=== PATIENT | male | born 1950 ===

== ENCOUNTER 2017-01-25 08:17 | Day surgery (SDC) | payer MEDICARE, MEDICAID ==
[2017-01-25] MEDS ORDERED: Lactated Ringer's 500 ML IV ONE (08:56)
[2017-01-25 09:09] VITALS: O2SAT 96
[2017-01-25] MEDS ORDERED: Propofol 10 mg/ml Inj (20 ML) ONE (09:36)
[2017-01-25 10:04] VITALS: TEMP 98
[2017-01-25 10:20] VITALS: BP 140/87; PULSE 65; RESP 14
== END 2017-01-25 10:28 | disposition home or self-care (01) ==
LOC: H.ENDO 08:17
PROVIDERS: ATTEND Internal Medicine Gastroenterology
DX: K30 Functional dyspepsia (principal); M13.80 Other specified arthritis, unspecified site; K44.9 Diaphragmatic hernia without obstruction or gangrene; K21.0 Gastro-esophageal reflux disease with esophagitis; K31.9 Disease of stomach and duodenum, unspecified; K29.50 Unspecified chronic gastritis without bleeding
CPT/HCPCS: 43239; 88305; 88313; J2001; J2704; J7120

== ENCOUNTER 2018-06-18 14:42 | Inpatient (IN) | payer OTHER, MEDICAID ==
[2017-09-14 09:31] VITALS: BMI 29.7
--- NOTE | 2018-06-18 17:26 | CP.PCM.HP ---
History of Present Illness - History of Present Illness History of Present Illness: 67M PMH Hep C with possible liver cirrhosis, HTN, HLD, migraine, History of heroin abuse (on methadone for 37 years), and degenerative arthritis of bilateral knees who was discharged from [facility] and admitted to [facility] status-post Left TKR with Dr. Gregory Amin 06/15. Pt admitted for further PT OT. ROS: per HPI all other systems reviewed and negative. PMH: Hep C, cirrhosis?, HTN, HLD, dilated common bile duct s/p ERCP on November 2017 @ [facility], heroin abuse (Methadone for 37 years), degenerative arthritis PSH: Left TKR (06/15/18) Sphinctorotomy with bile duct stents x2 Social: Smokes 4 cigarettes daily since his 20's, history of heroin abuse on methadone 37 years Family History: Father: Arthritis PMD: Dr. Harmeet Olson MD ([facility]) Allergies: acetaminophen, penicillin Present on Admission - Present on Admission Any Indicators Present on Admission: No Past Patient History - Past Medical History & Family History Past Medical History?: No - Past Social History Smoking Status: Former Smoker - CARDIAC Hx Hypertension: Yes - PULMONARY Hx Respiratory Disorders: Yes Hx Pneumonia: Yes (1 year ago) - NEUROLOGICAL Hx Neurological Disorder: No - HEENT Hx HEENT Problems: Yes Hx Cataracts: Yes (bilat iol) - RENAL Hx Chronic Kidney Disease: No - ENDOCRINE/METABOLIC Hx Endocrine Disorders: No - HEMATOLOGICAL/ONCOLOGICAL Hx Blood Disorders: Yes Hx Hepatitis C: Yes (treated no longer) - INTEGUMENTARY Hx Dermatological Problems: No - MUSCULOSKELETAL/RHEUMATOLOGICAL Hx Musculoskeletal Disorders: Yes Hx Degenerative Joint Disease: Yes Hx Osteoarthritis: Yes - GASTROINTESTINAL Hx Gastrointestinal Disorders: No - GENITOURINARY/GYNECOLOGICAL Hx Genitourinary Disorders: No - PSYCHIATRIC Hx Psychophysiologic Disorder: Yes Hx Substance Use: Yes (40 years ago snorted cocaine and herion) - SURGICAL HISTORY Hx Surgeries: Yes Hx Arthroscopy: Yes (LEFT KNEE) Hx Cataract Extraction: Yes - ANESTHESIA Hx Anesthesia: Yes Hx Anesthesia Reactions: No Hx Malignant Hyperthermia: No Meds Allergies/Adverse Reactions: Allergies Allergy/AdvReac Type Severity Reaction Status Date / Time acetaminophen [From Tylenol] Allergy Intermediate RASH Verified 06/18/18 16:57 Penicillins Allergy Intermediate RASH Verified 06/18/18 16:56 Physical Exam - Constitutional Appears: Non-toxic, No Acute Distress - Head Exam Head Exam: ATRAUMATIC, NORMOCEPHALIC - Eye Exam Eye Exam: EOMI, Normal appearance, PERRL Pupil Exam: NORMAL ACCOMODATION, PERRL - ENT Exam ENT Exam: Mucous Membranes Moist, Normal Exam - Neck Exam Neck exam: Positive for: Full Rom, Normal Inspection - Respiratory Exam Respiratory Exam: Clear to Auscultation Bilateral, NORMAL BREATHING PATTERN - Cardiovascular Exam Cardiovascular Exam: RRR, +S1, +S2 - GI/Abdominal Exam GI & Abdominal Exam: Normal Bowel Sounds, Soft. absent: Tenderness - Extremities Exam Extremities exam: Positive for: normal capillary refill, pedal pulses present - Back Exam Back exam: absent: CVA tenderness (L), CVA tenderness (R) - Neurological Exam Neurological exam: Alert, Reflexes Normal - Psychiatric Exam Psychiatric exam: Normal Affect, Normal Mood - Skin Skin Exam: Dry, Warm Assessment & Plan - Assessment and Plan (Free Text) Plan: 67M PMH Hep C with possible liver cirrhosis, HTN, HLD, migraine, History of heroin abuse (on methadone for 37 years), and degenerative arthritis of bilateral knees who was discharged from [facility] and admitted to [facility] status-post Left TKR with Dr. Gregory Amin 06/15. Pt admitted for further PT OT. DJD L knee S/P L TKR - Incentive spirometry - PT/OT consulted - Pain management: Oxycodone 10mg PO Q6 PRN HTN - Continue home medications Lopressor 25mg PO daily Losartan 25mg PO daily HLD - Discontinued atorvastatin at [facility] due to elevated LFTs on pre-op labs - Start Ezetimibe 10mg daily Migraine - Home meds: Imitrex 25mg PO BID History of Heroin Abuse - home dose Methadone 50mg PO daily Hep C - Monitor LFTs as they were elevated at [facility] PPx: Lovnox 40mg SC Q24H
[2018-06-18] MEDS ORDERED: oxyCODONE 10 mg Immediate Release Tab PO PRN (17:37)
[2018-06-18] MEDS: Enoxaparin 40 mg Syringe SC SCH (18:07)
[2018-06-19] MEDS ORDERED: oxyCODONE 5 mg Immediate Release Tab PO PRN (00:41)
[2018-06-19 07:51] LABS: HEMOGLOBIN 8.7 g/dL (12.0-18.0); MEAN CELL VOLUME 88.1 fl (80.0-94.0); MEAN CORPUSCULAR HEMOGLOBIN 31.3 pg (27.0-31.0); MEAN CORPUSCULAR HGB CONC 35.5 g/dL (33.0-37.0); RBC 2.79 Mil/uL (4.40-5.90); RED CELL DISTRIBUTION WIDTH 12.7 % (11.5-14.5); WHITE BLOOD COUNT 7.1 K/uL (4.8-10.8)
[2018-06-19 07:54] LABS: INR 1.1; PROTHROMBIN TIME 12.5 Seconds (9.8-13.1)
[2018-06-19 07:57] LABS: PARTIAL THROMBOPLASTIN TIME 30.4 Seconds (25.6-37.1)
[2018-06-19 08:09] LABS: ALB/GLOB RATIO 0.9 (1.0-2.1); ALBUMIN 3.1 g/dL (3.5-5.0); ALT/SGPT 43 U/L (21-72); AST/SGOT 30 U/L (17-59); BLOOD UREA NITROGEN 4 mg/dl (9-20); CALCIUM 8.6 mg/dL (8.4-10.2); GFR NON-AFRICAN AMERICAN > 60
[2018-06-19] MEDS: Metoprolol Succinate 25 mg XL Tab PO SCH (09:09)
[2018-06-19] MEDS: oxyCODONE 5 mg Immediate Release Tab PO PRN ×2 (11:05→20:05)
[2018-06-19] MEDS: Enoxaparin 40 mg Syringe SC SCH (17:18)
[2018-06-20] MEDS: Metoprolol Succinate 25 mg XL Tab PO SCH (08:44)
[2018-06-20] MEDS: oxyCODONE 5 mg Immediate Release Tab PO PRN ×2 (13:10→21:06)
--- NOTE | 2018-06-20 14:42 | CP.PCM.PN ---
Subjective - Date & Time of Evaluation Date of Evaluation: 06/20/18 Time of Evaluation: 14:00 - Subjective Subjective: Orthopedic progress note: Dr. Starkey Patient was seen and examined at bedside comfortable. Pain is well controlled. He is tolerating PT well. No new complaints. Denies CP/SOB/N/V/D/fever. Objective - Vital Signs/Intake and Output Vital Signs (last 24 hours): Temp Pulse Resp BP Pulse Ox 98.1 F 78 20 145/69 99 06/20/18 08:45 06/20/18 11:39 06/20/18 08:45 06/20/18 11:39 06/20/18 11:39 - Medications Medications: Current Medications Aspirin (Ecotrin) 81 mg PO DAILY [facility] Last Admin: 06/20/18 08:44 Dose: 81 mg Docusate Sodium (Colace) 100 mg PO BID [facility] Last Admin: 06/20/18 08:44 Dose: 100 mg Enoxaparin Sodium (Lovenox) 40 mg SC Q24H [facility] PRN Reason: Protocol Last Admin: 06/19/18 17:18 Dose: 40 mg Vancomycin HCl 1 gm/ Sodium (Chloride) 250 mls @ 125 mls/hr IVPB Q12@0600,1800 [facility] PRN Reason: Protocol Last Admin: 06/20/18 06:02 Dose: 125 mls/hr Ibuprofen (Motrin Tab) 600 mg PO Q6 PRN PRN Reason: Pain, moderate (4-7) Last Admin: 06/20/18 08:52 Dose: 600 mg Losartan Potassium (Cozaar) 25 mg PO DAILY [facility] Last Admin: 06/20/18 08:45 Dose: 25 mg Methadone HCl (Methadone) 50 mg PO DAILY [facility] Last Admin: 06/20/18 08:45 Dose: 50 mg Metoprolol Succinate (Toprol Xl) 25 mg PO DAILY [facility] Last Admin: 06/20/18 08:44 Dose: 25 mg Oxycodone HCl (Oxycodone Immediate Release Tab) 15 mg PO Q6 PRN PRN Reason: Pain, severe (8-10) Last Admin: 06/20/18 13:10 Dose: 15 mg - Labs Labs: 06/19/18 06:20 06/19/18 06:20 PT 12.5 Seconds (9.8-13.1) 06/19/18 06:20 INR 1.1 06/19/18 06:20 APTT 30.4 Seconds (25.6-37.1) 06/19/18 06:20 - Extremities Exam Additional comments: L knee: Dressing intact with mild serosang drainage Dressings removed revealing wound intact with malgorzata, Multiple decompressed large blisters healing well laterally and medially, mild serosang drainage mild to mod edema sensation intact SP/DP/TN motor intact EHL/FHL/TA/G pedal pulses intact comps soft NT b/l Assessment and Plan (1) Status post total left knee replacement Assessment & Plan: POD #5 s/p L TKA doing well -dressings changed, to be changed by PA -PT/OT WBAT -CPM -DVT ppx -above d/w Dr. Starkey in agreement Status: Acute
[2018-06-20] MEDS: Enoxaparin 40 mg Syringe SC SCH (17:28)
[2018-06-21] MEDS: oxyCODONE 5 mg Immediate Release Tab PO PRN ×2 (03:10→16:47)
[2018-06-21] MEDS: Metoprolol Succinate 25 mg XL Tab PO SCH (09:28)
--- NOTE | 2018-06-21 11:17 | CP.PCM.PN ---
Subjective - Date & Time of Evaluation Date of Evaluation: 06/21/18 Time of Evaluation: 08:00 - Subjective Subjective: Patient seen and examined at bedside comfortable. Pain well controlled at surgical knee, moderate pain anterior davenport. No new complaints. Denies CP/SOB/N/V/D/fever. Objective - Vital Signs/Intake and Output Vital Signs (last 24 hours): Temp Pulse Resp BP Pulse Ox 98.8 F 90 20 135/76 98 06/21/18 10:00 06/21/18 10:00 06/21/18 10:00 06/21/18 10:00 06/21/18 10:00 - Medications Medications: Current Medications Aspirin (Ecotrin) 81 mg PO DAILY [facility] Last Admin: 06/21/18 09:27 Dose: 81 mg Docusate Sodium (Colace) 100 mg PO BID [facility] Last Admin: 06/21/18 09:27 Dose: 100 mg Enoxaparin Sodium (Lovenox) 40 mg SC Q24H [facility]; Protocol Last Admin: 06/20/18 17:28 Dose: 40 mg Vancomycin HCl 1 gm/ Sodium (Chloride) 250 mls @ 125 mls/hr IVPB Q12@0600,1800 [facility]; Protocol Last Admin: 06/21/18 06:00 Dose: 125 mls/hr Ibuprofen (Motrin Tab) 600 mg PO Q6 PRN PRN Reason: Pain, moderate (4-7) Last Admin: 06/21/18 09:27 Dose: 600 mg Losartan Potassium (Cozaar) 25 mg PO DAILY [facility] Last Admin: 06/21/18 09:28 Dose: 25 mg Methadone HCl (Methadone) 50 mg PO DAILY [facility] Last Admin: 06/21/18 09:26 Dose: 50 mg Metoprolol Succinate (Toprol Xl) 25 mg PO DAILY [facility] Last Admin: 06/21/18 09:28 Dose: 25 mg Oxycodone HCl (Oxycodone Immediate Release Tab) 15 mg PO Q6 PRN PRN Reason: Pain, severe (8-10) Last Admin: 06/21/18 03:10 Dose: 15 mg - Labs Labs: 06/19/18 06:20 06/19/18 06:20 PT 12.5 Seconds (9.8-13.1) 06/19/18 06:20 INR 1.1 06/19/18 06:20 APTT 30.4 Seconds (25.6-37.1) 06/19/18 06:20 - Extremities Exam Additional comments: L knee: Dressing intact with minimal serosang drainage Dressings removed revealing wound intact with malgorzata, Multiple decompressed large blisters healing well laterally and medially healing well, mild serosang drainage tenderness anterior tibia, comps soft mild to mod edema sensation intact SP/DP/TN motor intact EHL/FHL/TA/G pedal pulses intact comps soft NT b/l Assessment and Plan (1) Status post total left knee replacement Assessment & Plan: POD #6 s/p L TKA doing well -dressings changed this AM, blisters healing well -anterior davenport tenderness due to postop swelling, compressive chi applied, comps soft -PT/OT WBAT -CPM -DVT ppx -above d/w Dr. Starkey in agreement Status: Acute
[2018-06-21] MEDS: Enoxaparin 40 mg Syringe SC SCH (16:48)
--- NOTE | 2018-06-21 18:44 | CP.PCM.CON ---
History of Present Illness - History of Present Illness History of Present Illness: Patient seen and examined. Denied any complaint Past Patient History - Past Medical History & Family History Past Medical History?: Yes - Past Social History Smoking Status: Light Smoker < 10 Cigarettes Daily - CARDIAC Hx Hypertension: Yes - PULMONARY Hx Respiratory Disorders: Yes Hx Pneumonia: Yes (1 year ago) - NEUROLOGICAL Hx Neurological Disorder: No - HEENT Hx HEENT Problems: Yes Hx Cataracts: Yes (bilat iol) - RENAL Hx Chronic Kidney Disease: No - ENDOCRINE/METABOLIC Hx Endocrine Disorders: No - HEMATOLOGICAL/ONCOLOGICAL Hx AIDS: No Hx Hepatitis C: Yes Hx Human Immunodeficiency Virus (HIV): No - INTEGUMENTARY Hx Dermatological Problems: No - MUSCULOSKELETAL/RHEUMATOLOGICAL Hx Musculoskeletal Disorders: Yes Hx Degenerative Joint Disease: Yes Hx Osteoarthritis: Yes Other/Comment: left tkr on 06/15/18 - GASTROINTESTINAL Hx Gastrointestinal Disorders: No - GENITOURINARY/GYNECOLOGICAL Hx Genitourinary Disorders: No - PSYCHIATRIC Hx Psychophysiologic Disorder: Yes Hx Substance Use: Yes (40 years ago snorted cocaine and herion) - SURGICAL HISTORY Hx Surgeries: Yes Hx Arthroscopy: Yes (LEFT KNEE) Hx Cataract Extraction: Yes - ANESTHESIA Hx Anesthesia: Yes Hx Anesthesia Reactions: No Hx Malignant Hyperthermia: No Meds Allergies/Adverse Reactions: Allergies Allergy/AdvReac Type Severity Reaction Status Date / Time acetaminophen [From Tylenol] Allergy Intermediate RASH Verified 06/18/18 16:57 Penicillins Allergy Intermediate RASH Verified 06/18/18 16:56 - Medications Medications: Current Medications Aspirin (Ecotrin) 81 mg PO DAILY [facility] Last Admin: 06/21/18 09:27 Dose: 81 mg Docusate Sodium (Colace) 100 mg PO BID [facility] Last Admin: 06/21/18 16:49 Dose: 100 mg Enoxaparin Sodium (Lovenox) 40 mg SC Q24H [facility]; Protocol Last Admin: 06/21/18 16:48 Dose: 40 mg Vancomycin HCl 1 gm/ Sodium (Chloride) 250 mls @ 125 mls/hr IVPB Q12@0600,1800 [facility]; Protocol Last Admin: 06/21/18 17:10 Dose: 125 mls/hr Ibuprofen (Motrin Tab) 600 mg PO Q6 PRN PRN Reason: Pain, moderate (4-7) Last Admin: 06/21/18 09:27 Dose: 600 mg Losartan Potassium (Cozaar) 25 mg PO DAILY [facility] Last Admin: 06/21/18 09:28 Dose: 25 mg Methadone HCl (Methadone) 50 mg PO DAILY [facility] Last Admin: 06/21/18 09:26 Dose: 50 mg Metoprolol Succinate (Toprol Xl) 25 mg PO DAILY [facility] Last Admin: 06/21/18 09:28 Dose: 25 mg Oxycodone HCl (Oxycodone Immediate Release Tab) 15 mg PO Q6 PRN PRN Reason: Pain, severe (8-10) Last Admin: 06/21/18 16:47 Dose: 15 mg Results - Vital Signs Recent Vital Signs: Last Vital Signs Temp 98.4 F 06/21/18 17:00 Pulse 84 06/21/18 17:00 Resp 20 06/21/18 17:00 BP 134/80 06/21/18 17:00 Pulse Ox 97 06/21/18 17:00 - Labs Result Diagrams: 06/19/18 06:20 06/19/18 06:20
--- NOTE | 2018-06-21 18:48 | CP.PCM.PN ---
Subjective - Date & Time of Evaluation Date of Evaluation: 06/21/18 Time of Evaluation: 18:00 - Subjective Subjective: Patient seen and examined. Requested to skip CPM today Objective - Vital Signs/Intake and Output Vital Signs (last 24 hours): Temp Pulse Resp BP Pulse Ox 98.4 F 84 20 134/80 97 06/21/18 17:00 06/21/18 17:00 06/21/18 17:00 06/21/18 17:00 06/21/18 17:00 - Medications Medications: Current Medications Aspirin (Ecotrin) 81 mg PO DAILY [facility] Last Admin: 06/21/18 09:27 Dose: 81 mg Docusate Sodium (Colace) 100 mg PO BID [facility] Last Admin: 06/21/18 16:49 Dose: 100 mg Enoxaparin Sodium (Lovenox) 40 mg SC Q24H [facility]; Protocol Last Admin: 06/21/18 16:48 Dose: 40 mg Vancomycin HCl 1 gm/ Sodium (Chloride) 250 mls @ 125 mls/hr IVPB Q12@0600,1800 [facility]; Protocol Last Admin: 06/21/18 17:10 Dose: 125 mls/hr Ibuprofen (Motrin Tab) 600 mg PO Q6 PRN PRN Reason: Pain, moderate (4-7) Last Admin: 06/21/18 09:27 Dose: 600 mg Losartan Potassium (Cozaar) 25 mg PO DAILY [facility] Last Admin: 06/21/18 09:28 Dose: 25 mg Methadone HCl (Methadone) 50 mg PO DAILY [facility] Last Admin: 06/21/18 09:26 Dose: 50 mg Metoprolol Succinate (Toprol Xl) 25 mg PO DAILY [facility] Last Admin: 06/21/18 09:28 Dose: 25 mg Oxycodone HCl (Oxycodone Immediate Release Tab) 15 mg PO Q6 PRN PRN Reason: Pain, severe (8-10) Last Admin: 06/21/18 16:47 Dose: 15 mg - Labs Labs: 06/19/18 06:20 06/19/18 06:20 PT 12.5 Seconds (9.8-13.1) 06/19/18 06:20 INR 1.1 06/19/18 06:20 APTT 30.4 Seconds (25.6-37.1) 06/19/18 06:20 - Constitutional Appears: No Acute Distress - Head Exam Head Exam: ATRAUMATIC - Eye Exam Eye Exam: absent: Scleral icterus - ENT Exam ENT Exam: Mucous Membranes Moist - Neck Exam Neck Exam: absent: Meningismus - Respiratory Exam Respiratory Exam: absent: Rales, Rhonchi, Wheezes, Respiratory Distress - Cardiovascular Exam Cardiovascular Exam: REGULAR RHYTHM, +S1, +S2 - GI/Abdominal Exam GI & Abdominal Exam: Soft. absent: Tenderness - Rectal Exam Rectal Exam: Deferred - Neurological Exam Neurological Exam: Alert, Oriented x3 - Psychiatric Exam Psychiatric exam: Normal Affect - Skin Skin Exam: Dry, Intact Assessment and Plan - Assessment and Plan (Free Text) Assessment: 67 yo male with history of Hep C, HTN, HLD, Heroin abuse (on methadone for 37 years) and degenerative arthritis of bilateral knees had left TKR on 06/15/18. He was then transferred to TCU for further PT/OT 1. S/P Left TKR continue PT/OT Oxycodone 10mg PO Q6 PRN 2. HTN BP stable Lopressor 25mg PO daily and Losartan 25mg PO daily 3. HLD on Ezetimibe 10mg daily 4. Migraine Imitrex 25mg PO BID 5. History of Heroin Abuse on Methadone 50mg PO daily 6. DVT prophylaxis Lovenox 40mg SC daily
[2018-06-22] MEDS: oxyCODONE 5 mg Immediate Release Tab PO PRN ×3 (04:34→18:03)
[2018-06-22] MEDS: Metoprolol Succinate 25 mg XL Tab PO SCH (08:31)
--- NOTE | 2018-06-22 09:19 | CP.PCM.PN ---
Subjective - Date & Time of Evaluation Date of Evaluation: 06/22/18 Time of Evaluation: 08:30 - Subjective Subjective: Patient seen and examined OOB to wheelchair comfortable. Pain much improved today. Notes he has been more diligent with elevation. Refused >1 hr of CPM yesterday. C/o issues sleeping through night. No new complaints. Objective - Vital Signs/Intake and Output Vital Signs (last 24 hours): Temp Pulse Resp BP Pulse Ox 98.1 F 92 H 20 130/72 98 06/22/18 00:07 06/22/18 08:31 06/21/18 23:00 06/22/18 08:31 06/21/18 23:00 - Medications Medications: Current Medications Aspirin (Ecotrin) 81 mg PO DAILY [facility] Last Admin: 06/22/18 08:30 Dose: 81 mg Docusate Sodium (Colace) 100 mg PO BID [facility] Last Admin: 06/22/18 08:29 Dose: 100 mg Enoxaparin Sodium (Lovenox) 40 mg SC Q24H [facility]; Protocol Last Admin: 06/21/18 16:48 Dose: 40 mg Vancomycin HCl 1 gm/ Sodium (Chloride) 250 mls @ 125 mls/hr IVPB Q12@0600,1800 [facility]; Protocol Last Admin: 06/22/18 05:13 Dose: 125 mls/hr Ibuprofen (Motrin Tab) 600 mg PO Q6 PRN PRN Reason: Pain, moderate (4-7) Last Admin: 06/22/18 09:06 Dose: 600 mg Ibuprofen (Motrin Tab) 600 mg PO Q6 PRN PRN Reason: Fever >100.4 F Last Admin: 06/21/18 23:07 Dose: 600 mg Losartan Potassium (Cozaar) 25 mg PO DAILY [facility] Last Admin: 06/22/18 08:29 Dose: 25 mg Methadone HCl (Methadone) 50 mg PO DAILY [facility] Last Admin: 06/22/18 08:30 Dose: 50 mg Metoprolol Succinate (Toprol Xl) 25 mg PO DAILY [facility] Last Admin: 06/22/18 08:31 Dose: 25 mg Oxycodone HCl (Oxycodone Immediate Release Tab) 15 mg PO Q6 PRN PRN Reason: Pain, severe (8-10) Last Admin: 06/22/18 04:34 Dose: 15 mg - Labs Labs: 06/19/18 06:20 06/19/18 06:20 PT 12.5 Seconds (9.8-13.1) 06/19/18 06:20 INR 1.1 06/19/18 06:20 APTT 30.4 Seconds (25.6-37.1) 06/19/18 06:20 - Extremities Exam Additional comments: L knee: Dressing intact with minimal serosang drainage Dressings removed revealing wound intact with malgorzata, Multiple decompressed large blisters healing well laterally and medially healing well, mild serosang drainage improved tenderness anterior tibia, comps soft mild edema sensation intact SP/DP/TN motor intact EHL/FHL/TA/G pedal pulses intact comps soft NT b/l Assessment and Plan (1) Status post total left knee replacement Assessment & Plan: POD #7 s/p L TKA doing well -dressings changed this AM, blisters healing well -compressive chi applied -PT/OT WBAT -Had discussion with patient the importance of CPM, patient understands -anirudh prn for insomnia -DVT ppx -above d/w Dr. Starkey in agreement Status: Acute
[2018-06-22] MEDS: Enoxaparin 40 mg Syringe SC SCH (17:57)
--- NOTE | 2018-06-22 20:00 | CP.PCM.CON ---
History of Present Illness - History of Present Illness History of Present Illness: Dr Lewis PMR consultation on Jt Christine, born 1950 with DJD and s/p left TKR. WBAT. Some blisters being treated and improving. Pain is controlled. He has history of substance abuse and is still on Methadone which should cer tainly be considered to be tapered off after all these years. Having complaints of sleeping issues. Given history I do not want to prescribe a Benzo and will write for zanaflex. Review of Systems - Constitutional Constitutional: absent: Anorexia, Chills - EENT Eyes: absent: Change in Vision Ears: absent: Ear Discharge Nose/Mouth/Throat: absent: Nasal Congestion - Cardiovascular Cardiovascular: absent: Chest Pain - Respiratory Respiratory: absent: Dyspnea, Hemoptysis - Gastrointestinal Gastrointestinal: absent: Constipation - Musculoskeletal Musculoskeletal: absent: Back Pain - Integumentary Integumentary: absent: Bleeding Lesions - Neurological Neurological: absent: Abnormal Movements - Psychiatric Psychiatric: absent: Difficulty Concentrating Past Patient History - Past Medical History & Family History Past Medical History?: Yes - Past Social History Smoking Status: Light Smoker < 10 Cigarettes Daily Alcohol: None Drugs: Denies Home Situation {Lives}: With Family (8 steps) - CARDIAC Hx Hypertension: Yes - PULMONARY Hx Respiratory Disorders: Yes Hx Pneumonia: Yes (1 year ago) - NEUROLOGICAL Hx Neurological Disorder: No - HEENT Hx HEENT Problems: Yes Hx Cataracts: Yes (bilat iol) - RENAL Hx Chronic Kidney Disease: No - ENDOCRINE/METABOLIC Hx Endocrine Disorders: No - HEMATOLOGICAL/ONCOLOGICAL Hx AIDS: No Hx Hepatitis C: Yes Hx Human Immunodeficiency Virus (HIV): No - INTEGUMENTARY Hx Dermatological Problems: No - MUSCULOSKELETAL/RHEUMATOLOGICAL Hx Musculoskeletal Disorders: Yes Hx Degenerative Joint Disease: Yes Hx Osteoarthritis: Yes Other/Comment: left tkr on 06/15/18 - GASTROINTESTINAL Hx Gastrointestinal Disorders: No - GENITOURINARY/GYNECOLOGICAL Hx Genitourinary Disorders: No - PSYCHIATRIC Hx Psychophysiologic Disorder: Yes Hx Substance Use: Yes (40 years ago snorted cocaine and herion) - SURGICAL HISTORY Hx Surgeries: Yes Hx Arthroscopy: Yes (LEFT KNEE) Hx Cataract Extraction: Yes - ANESTHESIA Hx Anesthesia: Yes Hx Anesthesia Reactions: No Hx Malignant Hyperthermia: No Meds Allergies/Adverse Reactions: Allergies Allergy/AdvReac Type Severity Reaction Status Date / Time acetaminophen [From Tylenol] Allergy Intermediate RASH Verified 06/18/18 16:57 Penicillins Allergy Intermediate RASH Verified 06/18/18 16:56 - Medications Medications: Current Medications Aspirin (Ecotrin) 81 mg PO DAILY [facility] Last Admin: 06/22/18 08:30 Dose: 81 mg Docusate Sodium (Colace) 100 mg PO BID [facility] Last Admin: 06/22/18 17:56 Dose: 100 mg Enoxaparin Sodium (Lovenox) 40 mg SC Q24H [facility]; Protocol Last Admin: 06/22/18 17:57 Dose: 40 mg Vancomycin HCl 1 gm/ Sodium (Chloride) 250 mls @ 125 mls/hr IVPB Q12@0600,1800 [facility]; Protocol Last Admin: 06/22/18 18:29 Dose: 125 mls/hr Ibuprofen (Motrin Tab) 600 mg PO Q6 PRN PRN Reason: Pain, moderate (4-7) Last Admin: 06/22/18 09:06 Dose: 600 mg Ibuprofen (Motrin Tab) 600 mg PO Q6 PRN PRN Reason: Fever >100.4 F Last Admin: 06/21/18 23:07 Dose: 600 mg Losartan Potassium (Cozaar) 25 mg PO DAILY [facility] Last Admin: 06/22/18 08:29 Dose: 25 mg Methadone HCl (Methadone) 50 mg PO DAILY [facility] Last Admin: 06/22/18 08:30 Dose: 50 mg Metoprolol Succinate (Toprol Xl) 25 mg PO DAILY [facility] Last Admin: 06/22/18 08:31 Dose: 25 mg Oxycodone HCl (Oxycodone Immediate Release Tab) 15 mg PO Q6 PRN PRN Reason: Pain, severe (8-10) Last Admin: 06/22/18 18:03 Dose: 15 mg Zolpidem Tartrate (Ambien) 5 mg PO HS PRN PRN Reason: Insomnia Physical Exam - Constitutional Appears: Non-toxic, No Acute Distress - Head Exam Head Exam: ATRAUMATIC, NORMAL INSPECTION, NORMOCEPHALIC - Eye Exam Eye Exam: EOMI - ENT Exam ENT Exam: Mucous Membranes Moist - Respiratory Exam Respiratory Exam: NORMAL BREATHING PATTERN - Cardiovascular Exam Cardiovascular Exam: REGULAR RHYTHM - GI/Abdominal Exam GI & Abdominal Exam: Distended. absent: Firm - Extremities Exam Extremities exam: Negative for: normal inspection (has left knee bandaged and just changed) - Neurological Exam Neurological exam: Alert, CN II-XII Intact, Oriented x3 - Psychiatric Exam Psychiatric exam: Normal Affect, Normal Mood Results - Vital Signs Recent Vital Signs: Last Vital Signs Temp 98.2 F 06/22/18 10:00 Pulse 92 H 06/22/18 10:00 Resp 19 06/22/18 10:00 BP 130/72 06/22/18 10:00 Pulse Ox 99 06/22/18 10:00 - Labs Result Diagrams: 06/19/18 06:20 06/19/18 06:20 Assessment & Plan - Assessment and Plan (Free Text) Assessment: PT/OT to continue to help increase functional independence Pain: controlled Vascular: no evidence of DVT GI: No evidence of constipation or diarrhea Patient continues to be an excellent TCU rehabilitation candidate and will have continued focused PT, OT and recreational therapy to help facilitate a safe and appropriate d/c plan
[2018-06-23] MEDS: oxyCODONE 5 mg Immediate Release Tab PO PRN ×3 (02:35→21:24)
[2018-06-23] MEDS: Metoprolol Succinate 25 mg XL Tab PO SCH (08:12)
--- NOTE | 2018-06-23 11:18 | CP.PCM.PN ---
Subjective - Date & Time of Evaluation Date of Evaluation: 06/23/18 Time of Evaluation: 07:45 - Subjective Subjective: Patient seen and examined OOB to chair comfortable. Pain continues to improve. No new complaints. Denies CP/SOB/N/V/D/fever. Objective - Vital Signs/Intake and Output Vital Signs (last 24 hours): Temp Pulse Resp BP Pulse Ox 98.2 F 77 20 131/75 99 06/23/18 10:00 06/23/18 10:00 06/23/18 10:00 06/23/18 10:00 06/23/18 10:00 - Medications Medications: Current Medications Aspirin (Ecotrin) 81 mg PO DAILY [facility] Last Admin: 06/23/18 08:11 Dose: 81 mg Docusate Sodium (Colace) 100 mg PO BID [facility] Last Admin: 06/23/18 08:11 Dose: 100 mg Ezetimibe (Zetia) 10 mg PO DAILY [facility] Last Admin: 06/23/18 10:31 Dose: 10 mg Enoxaparin Sodium (Lovenox) 40 mg SC Q24H [facility]; Protocol Last Admin: 06/22/18 17:57 Dose: 40 mg Vancomycin HCl 1 gm/ Sodium (Chloride) 250 mls @ 125 mls/hr IVPB Q12@0600,1800 [facility]; Protocol Last Admin: 06/23/18 06:05 Dose: 125 mls/hr Ibuprofen (Motrin Tab) 600 mg PO Q6 PRN PRN Reason: Pain, moderate (4-7) Last Admin: 06/23/18 08:12 Dose: 600 mg Ibuprofen (Motrin Tab) 600 mg PO Q6 PRN PRN Reason: Fever >100.4 F Last Admin: 06/22/18 21:23 Dose: 600 mg Losartan Potassium (Cozaar) 25 mg PO DAILY [facility] Last Admin: 06/23/18 08:11 Dose: 25 mg Methadone HCl (Methadone) 50 mg PO DAILY [facility] Last Admin: 06/23/18 08:10 Dose: 50 mg Metoprolol Succinate (Toprol Xl) 25 mg PO DAILY [facility] Last Admin: 06/23/18 08:12 Dose: 25 mg Oxycodone HCl (Oxycodone Immediate Release Tab) 15 mg PO Q6 PRN PRN Reason: Pain, severe (8-10) Last Admin: 06/23/18 02:35 Dose: 15 mg Tizanidine HCl (Zanaflex) 4 mg PO HS [place] Last Admin: 06/22/18 21:53 Dose: 4 mg Zolpidem Tartrate (Ambien) 5 mg PO HS PRN PRN Reason: Insomnia Last Admin: 06/22/18 23:43 Dose: 5 mg - Labs Labs: 06/19/18 06:20 06/19/18 06:20 PT 12.5 Seconds (9.8-13.1) 06/19/18 06:20 INR 1.1 06/19/18 06:20 APTT 30.4 Seconds (25.6-37.1) 06/19/18 06:20 - Extremities Exam Additional comments: L knee: Dressing intact with minimal serous drainage Dressings removed revealing wound intact with malgorzata, Multiple healing large blisters healing well laterally and medially improved tenderness anterior tibia, comps soft mild edema sensation intact SP/DP/TN motor intact EHL/FHL/TA/G pedal pulses intact comps soft NT b/l Assessment and Plan (1) Status post total left knee replacement Assessment & Plan: POD #8 s/p L TKA doing well -dressings changed this AM, blisters healing well -continue abx as per Dr. Starkey -compressive chi applied -PT/OT WBAT -DVT ppx -above d/w Dr. Starkey in agreement Status: Acute
--- NOTE | 2018-06-23 13:47 | CP.PCM.PN ---
Subjective - Date & Time of Evaluation Date of Evaluation: 06/23/18 Time of Evaluation: 09:00 - Subjective Subjective: Patient seen and examined . Feeling better , participating with PT . Complains of pain to left knee.Hemodynamically stable, febrile No acute issues overnight. Objective - Vital Signs/Intake and Output Vital Signs (last 24 hours): Temp Pulse Resp BP Pulse Ox 98.2 F 77 20 131/75 99 06/23/18 10:00 06/23/18 10:00 06/23/18 10:00 06/23/18 10:00 06/23/18 10:00 - Medications Medications: Current Medications Aspirin (Ecotrin) 81 mg PO DAILY [facility] Last Admin: 06/23/18 08:11 Dose: 81 mg Docusate Sodium (Colace) 100 mg PO BID [facility] Last Admin: 06/23/18 08:11 Dose: 100 mg Ezetimibe (Zetia) 10 mg PO DAILY [facility] Last Admin: 06/23/18 10:31 Dose: 10 mg Enoxaparin Sodium (Lovenox) 40 mg SC Q24H [facility]; Protocol Last Admin: 06/22/18 17:57 Dose: 40 mg Vancomycin HCl 1 gm/ Sodium (Chloride) 250 mls @ 125 mls/hr IVPB Q12@0600,1800 [facility]; Protocol Last Admin: 06/23/18 06:05 Dose: 125 mls/hr Ibuprofen (Motrin Tab) 600 mg PO Q6 PRN PRN Reason: Pain, moderate (4-7) Last Admin: 06/23/18 08:12 Dose: 600 mg Ibuprofen (Motrin Tab) 600 mg PO Q6 PRN PRN Reason: Fever >100.4 F Last Admin: 06/22/18 21:23 Dose: 600 mg Losartan Potassium (Cozaar) 25 mg PO DAILY [facility] Last Admin: 06/23/18 08:11 Dose: 25 mg Methadone HCl (Methadone) 50 mg PO DAILY [facility] Last Admin: 06/23/18 08:10 Dose: 50 mg Metoprolol Succinate (Toprol Xl) 25 mg PO DAILY [facility] Last Admin: 06/23/18 08:12 Dose: 25 mg Oxycodone HCl (Oxycodone Immediate Release Tab) 15 mg PO Q6 PRN PRN Reason: Pain, severe (8-10) Last Admin: 06/23/18 12:16 Dose: 15 mg Tizanidine HCl (Zanaflex) 4 mg PO HS [place] Last Admin: 06/22/18 21:53 Dose: 4 mg Zolpidem Tartrate (Ambien) 5 mg PO HS PRN PRN Reason: Insomnia Last Admin: 06/22/18 23:43 Dose: 5 mg - Labs Labs: 06/19/18 06:20 06/19/18 06:20 PT 12.5 Seconds (9.8-13.1) 06/19/18 06:20 INR 1.1 06/19/18 06:20 APTT 30.4 Seconds (25.6-37.1) 06/19/18 06:20 - Constitutional Appears: Non-toxic, No Acute Distress - Head Exam Head Exam: ATRAUMATIC, NORMAL INSPECTION, NORMOCEPHALIC - Eye Exam Eye Exam: EOMI, Normal appearance, PERRL Pupil Exam: NORMAL ACCOMODATION - ENT Exam ENT Exam: Mucous Membranes Moist, Normal Exam - Neck Exam Neck Exam: Full ROM, Normal Inspection - Respiratory Exam Respiratory Exam: Clear to Ausculation Bilateral, NORMAL BREATHING PATTERN. absent: Rales, Rhonchi, Wheezes - Cardiovascular Exam Cardiovascular Exam: REGULAR RHYTHM, RRR, +S1, +S2. absent: JVD - GI/Abdominal Exam GI & Abdominal Exam: Soft, Normal Bowel Sounds. absent: Distended, Guarding, Tenderness, Rebound - Rectal Exam Rectal Exam: Deferred - Extremities Exam Additional comments: left knee dressing in place - Back Exam Back Exam: NORMAL INSPECTION - Neurological Exam Neurological Exam: Alert, Awake, CN II-XII Intact, Oriented x3 - Psychiatric Exam Psychiatric exam: Normal Affect - Skin Skin Exam: Dry, Pallor, Warm Assessment and Plan - Assessment and Plan (Free Text) Assessment: 67 y/o male with history of Hep C, HTN, HLD, Heroin abuse (on methadone for 37 years) and degenerative arthritis of bilateral knees had left TKR on 06/15/18. He was then transferred to TCU for further PT/OT. At present doing well, participating with PT 1. S/P Left TKR continue PT/OT Oxycodone 10mg PO Q6 PRN on vancomycin IV prophylactically 2. HTN BP stable Lopressor 25mg PO daily and Losartan 25mg PO daily 3. HLD on Ezetimibe 10mg daily 4. Migraine Imitrex 25mg PO BID 5. History of Heroin Abuse on Methadone 50mg PO daily 6. Anemia on Ferrous sulfate PO 7. DVT prophylaxis Lovenox 40mg SC daily
[2018-06-23] MEDS: Enoxaparin 40 mg Syringe SC SCH (17:52)
[2018-06-24] MEDS: oxyCODONE 5 mg Immediate Release Tab PO PRN ×2 (06:51→21:04)
[2018-06-24] MEDS: Metoprolol Succinate 25 mg XL Tab PO SCH (08:45)
--- NOTE | 2018-06-24 11:16 | CP.PCM.PN ---
Subjective - Date & Time of Evaluation Date of Evaluation: 06/24/18 Time of Evaluation: 10:00 - Subjective Subjective: Patient states that he has pain in the morning once he warms up he is better. Denies CP/SOB/dizziness. Objective - Vital Signs/Intake and Output Vital Signs (last 24 hours): Temp Pulse Resp BP Pulse Ox 98.2 F 81 18 139/72 99 06/24/18 09:00 06/24/18 09:00 06/24/18 09:00 06/24/18 09:00 06/24/18 09:00 - Medications Medications: Current Medications Aspirin (Ecotrin) 81 mg PO DAILY [facility] Last Admin: 06/24/18 08:47 Dose: 81 mg Docusate Sodium (Colace) 100 mg PO BID [facility] Last Admin: 06/24/18 08:45 Dose: 100 mg Ezetimibe (Zetia) 10 mg PO DAILY [facility] Last Admin: 06/24/18 08:45 Dose: 10 mg Enoxaparin Sodium (Lovenox) 40 mg SC Q24H [facility]; Protocol Last Admin: 06/23/18 17:52 Dose: 40 mg Ferrous Sulfate (Feosol) 325 mg PO BID [facility] Last Admin: 06/24/18 08:45 Dose: 325 mg Vancomycin HCl 1 gm/ Sodium (Chloride) 250 mls @ 125 mls/hr IVPB Q12@0600,1800 [facility]; Protocol Last Admin: 06/24/18 06:53 Dose: 125 mls/hr Ibuprofen (Motrin Tab) 600 mg PO Q6 PRN PRN Reason: Pain, moderate (4-7) Last Admin: 06/23/18 17:54 Dose: 600 mg Ibuprofen (Motrin Tab) 600 mg PO Q6 PRN PRN Reason: Fever >100.4 F Last Admin: 06/22/18 21:23 Dose: 600 mg Ketorolac Tromethamine (Toradol) 15 mg IM ONCE ONE Stop: 06/24/18 12:01 Losartan Potassium (Cozaar) 25 mg PO DAILY [facility] Last Admin: 06/24/18 08:46 Dose: 25 mg Methadone HCl (Methadone) 50 mg PO DAILY [facility] Last Admin: 06/24/18 08:46 Dose: 50 mg Metoprolol Succinate (Toprol Xl) 25 mg PO DAILY [facility] Last Admin: 06/24/18 08:45 Dose: 25 mg Oxycodone HCl (Oxycodone Immediate Release Tab) 15 mg PO Q6 PRN PRN Reason: Pain, severe (8-10) Last Admin: 06/24/18 06:51 Dose: 15 mg Tizanidine HCl (Zanaflex) 4 mg PO HS [place] Last Admin: 06/23/18 21:25 Dose: 4 mg Zolpidem Tartrate (Ambien) 5 mg PO HS PRN PRN Reason: Insomnia Last Admin: 06/22/18 23:43 Dose: 5 mg - Labs Labs: 06/19/18 06:20 06/19/18 06:20 PT 12.5 Seconds (9.8-13.1) 06/19/18 06:20 INR 1.1 06/19/18 06:20 APTT 30.4 Seconds (25.6-37.1) 06/19/18 06:20 - Extremities Exam Additional comments: +ROM ankle/toes, sensation intact, incision intact, dry, blisters to medial knee dry, one lateral still oozing small amount of blood. No signs of infection. Wounds covered with xeroform. Calves soft NT neg homans +ROM ankel/toes Assessment and Plan (1) Primary osteoarthritis of left knee Assessment & Plan: POD#9 s/p TKR local wound care with xeroform per Dr. Starkey PT/OT VTE proph elevation d/w Dr. Starkey, agrees wt above Status: Acute
[2018-06-24] MEDS: Enoxaparin 40 mg Syringe SC SCH (17:11)
[2018-06-25] MEDS: oxyCODONE 5 mg Immediate Release Tab PO PRN ×3 (03:24→20:25)
[2018-06-25] MEDS: Metoprolol Succinate 25 mg XL Tab PO SCH (08:15)
[2018-06-25] MEDS: Enoxaparin 40 mg Syringe SC SCH (17:08)
[2018-06-26] MEDS: oxyCODONE 5 mg Immediate Release Tab PO PRN ×3 (06:25→23:48)
[2018-06-26] MEDS: Metoprolol Succinate 25 mg XL Tab PO SCH (09:15)
[2018-06-26 15:57] VITALS: RESP 20
[2018-06-27] MEDS: Metoprolol Succinate 25 mg XL Tab PO SCH (08:35)
--- NOTE | 2018-06-27 10:31 | CP.PCM.PN ---
Subjective - Date & Time of Evaluation Date of Evaluation: 06/27/18 Time of Evaluation: 09:00 - Subjective Subjective: Patient was seen and examined OOB to chair comfortable. Pain continues to improve. No new complaints. Denies CP/SOB/N/V/D/fever. Objective - Vital Signs/Intake and Output Vital Signs (last 24 hours): Temp Pulse Resp BP Pulse Ox 98.1 F 66 20 127/67 98 06/27/18 08:35 06/27/18 08:35 06/27/18 08:35 06/27/18 08:35 06/27/18 08:35 - Medications Medications: Current Medications Aspirin (Ecotrin) 81 mg PO DAILY [facility] Last Admin: 06/27/18 08:36 Dose: 81 mg Docusate Sodium (Colace) 100 mg PO BID [facility] Last Admin: 06/27/18 08:34 Dose: 100 mg Ezetimibe (Zetia) 10 mg PO DAILY [facility] Last Admin: 06/27/18 08:34 Dose: 10 mg Ferrous Sulfate (Feosol) 325 mg PO BID [facility] Last Admin: 06/27/18 08:39 Dose: 325 mg Ibuprofen (Motrin Tab) 600 mg PO Q6 PRN PRN Reason: Pain, moderate (4-7) Last Admin: 06/23/18 17:54 Dose: 600 mg Ibuprofen (Motrin Tab) 600 mg PO Q6 PRN PRN Reason: Fever >100.4 F Last Admin: 06/22/18 21:23 Dose: 600 mg Ketorolac Tromethamine (Toradol) 15 mg IVP Q6 PRN PRN Reason: Pain, Mild (1-3) Losartan Potassium (Cozaar) 25 mg PO DAILY [facility] Last Admin: 06/27/18 08:35 Dose: 25 mg Methadone HCl (Methadone) 50 mg PO DAILY [facility] Last Admin: 06/27/18 08:36 Dose: 50 mg Metoprolol Succinate (Toprol Xl) 25 mg PO DAILY [facility] Last Admin: 06/27/18 08:35 Dose: 25 mg Oxycodone HCl (Oxycodone Immediate Release Tab) 10 mg PO Q6 PRN PRN Reason: Pain, severe (8-10) Last Admin: 06/26/18 23:48 Dose: 10 mg Tizanidine HCl (Zanaflex) 4 mg PO HS [facility] Last Admin: 06/26/18 21:06 Dose: 4 mg Zolpidem Tartrate (Ambien) 5 mg PO HS PRN PRN Reason: Insomnia - Labs Labs: 06/19/18 06:20 06/19/18 06:20 PT 12.5 Seconds (9.8-13.1) 06/19/18 06:20 INR 1.1 06/19/18 06:20 APTT 30.4 Seconds (25.6-37.1) 06/19/18 06:20 - Extremities Exam Additional comments: L knee: Dressing intact with no drainage Dressings removed revealing wound intact with malgorzata, Multiple healing large blisters healing well laterally and medially mild edema ROM 0-80deg sensation intact SP/DP/TN motor intact EHL/FHL/TA/G pedal pulses intact comps soft NT b/l Assessment and Plan (1) Status post total left knee replacement Assessment & Plan: POD #12 s/p L TKA doing well -dressings changed this AM, blisters well healed, continue dry dressing changes with telfa, gauze and chi wrap after every shower -may shower 2 weeks postop -compressive chi applied -CPM as per order -PT/OT WBAT -DVT ppx -to follow up in office next Wednesday, call for appt -above d/w Dr. Starkey in agreement Status: Acute
[2018-06-27] MEDS: oxyCODONE 5 mg Immediate Release Tab PO PRN (16:16)
[2018-06-27] MEDS ORDERED: Enoxaparin 40 mg Syringe SC SCH (16:30)
[2018-06-27 17:51] LABS: HEMOGLOBIN 9.3 g/dL (12.0-18.0); MEAN CELL VOLUME 86.8 fl (80.0-94.0); MEAN CORPUSCULAR HEMOGLOBIN 30.3 pg (27.0-31.0); MEAN CORPUSCULAR HGB CONC 34.9 g/dL (33.0-37.0); RBC 3.08 Mil/uL (4.40-5.90); RED CELL DISTRIBUTION WIDTH 13.4 % (11.5-14.5); WHITE BLOOD COUNT 7.7 K/uL (4.8-10.8)
[2018-06-27 18:21] LABS: ALB/GLOB RATIO 0.9 (1.0-2.1); ALBUMIN 3.5 g/dL (3.5-5.0); ALT/SGPT 42 U/L (21-72); AST/SGOT 49 U/L (17-59); BLOOD UREA NITROGEN 7 mg/dl (9-20); CALCIUM 9.1 mg/dL (8.4-10.2); GFR NON-AFRICAN AMERICAN > 60
[2018-06-27] MEDS: Enoxaparin 40 mg Syringe SC SCH (21:43)
[2018-06-28] MEDS: oxyCODONE 5 mg Immediate Release Tab PO PRN ×3 (02:51→16:33)
[2018-06-28] MEDS: Enoxaparin 40 mg Syringe SC SCH (08:23)
[2018-06-28] MEDS: Metoprolol Succinate 25 mg XL Tab PO SCH (08:24)
--- NOTE | 2018-06-28 09:35 | CP.PCM.PN ---
Subjective - Date & Time of Evaluation Date of Evaluation: 06/28/18 Time of Evaluation: 09:30 - Subjective Subjective: Patient seen during PT. Doing well. Hemodynamically stable, afebrile.No acute issues overnight. For discharge in AM. Objective - Vital Signs/Intake and Output Vital Signs (last 24 hours): Temp Pulse Resp BP Pulse Ox 98.1 F 66 20 133/71 98 06/28/18 08:11 06/28/18 08:24 06/28/18 08:11 06/28/18 08:24 06/28/18 08:11 - Medications Medications: Current Medications Aspirin (Ecotrin) 81 mg PO DAILY [facility] Last Admin: 06/28/18 08:24 Dose: 81 mg Docusate Sodium (Colace) 100 mg PO BID [facility] Last Admin: 06/28/18 08:23 Dose: 100 mg Ezetimibe (Zetia) 10 mg PO DAILY [facility] Last Admin: 06/28/18 08:24 Dose: 10 mg Enoxaparin Sodium (Lovenox) 40 mg SC DAILY [facility]; Protocol Last Admin: 06/28/18 08:23 Dose: 40 mg Ferrous Sulfate (Feosol) 325 mg PO BID [facility] Last Admin: 06/28/18 08:26 Dose: 325 mg Ibuprofen (Motrin Tab) 600 mg PO Q6 PRN PRN Reason: Pain, moderate (4-7) Last Admin: 06/23/18 17:54 Dose: 600 mg Ibuprofen (Motrin Tab) 600 mg PO Q6 PRN PRN Reason: Fever >100.4 F Last Admin: 06/22/18 21:23 Dose: 600 mg Ketorolac Tromethamine (Toradol) 15 mg IVP Q6 PRN PRN Reason: Pain, Mild (1-3) Losartan Potassium (Cozaar) 25 mg PO DAILY [facility] Last Admin: 06/28/18 08:23 Dose: 25 mg Methadone HCl (Methadone) 50 mg PO DAILY [facility] Last Admin: 06/28/18 08:21 Dose: 50 mg Metoprolol Succinate (Toprol Xl) 25 mg PO DAILY [facility] Last Admin: 06/28/18 08:24 Dose: 25 mg Oxycodone HCl (Oxycodone Immediate Release Tab) 10 mg PO Q6 PRN PRN Reason: Pain, severe (8-10) Last Admin: 06/28/18 09:06 Dose: 10 mg Tizanidine HCl (Zanaflex) 4 mg PO HS [place] Last Admin: 06/27/18 21:42 Dose: 4 mg Zolpidem Tartrate (Ambien) 5 mg PO HS PRN PRN Reason: Insomnia - Labs Labs: 06/27/18 17:06 06/27/18 17:06 PT 12.5 Seconds (9.8-13.1) 06/19/18 06:20 INR 1.1 06/19/18 06:20 APTT 30.4 Seconds (25.6-37.1) 06/19/18 06:20 - Constitutional Appears: Non-toxic, No Acute Distress - Head Exam Head Exam: ATRAUMATIC, NORMAL INSPECTION, NORMOCEPHALIC - Eye Exam Eye Exam: Normal appearance, PERRL Pupil Exam: NORMAL ACCOMODATION - ENT Exam ENT Exam: Mucous Membranes Moist, Normal Exam - Neck Exam Neck Exam: Full ROM, Normal Inspection - Respiratory Exam Respiratory Exam: Clear to Ausculation Bilateral, NORMAL BREATHING PATTERN. absent: Rales, Rhonchi, Wheezes - Cardiovascular Exam Cardiovascular Exam: REGULAR RHYTHM, RRR, +S1, +S2. absent: JVD - GI/Abdominal Exam GI & Abdominal Exam: Soft, Normal Bowel Sounds. absent: Distended, Guarding, Tenderness, Rebound - Rectal Exam Rectal Exam: Deferred - Extremities Exam Extremities Exam: Full ROM, Normal Capillary Refill, Normal Inspection Additional comments: left knee dressing in place - Back Exam Back Exam: NORMAL INSPECTION - Neurological Exam Neurological Exam: Alert, Awake, CN II-XII Intact, Oriented x3 - Psychiatric Exam Psychiatric exam: Normal Affect, Normal Mood - Skin Skin Exam: Dry, Intact, Warm Assessment and Plan - Assessment and Plan (Free Text) Assessment: 67 y/o male with history of Hep C, HTN, HLD, Heroin abuse (on methadone for 37 years) and degenerative arthritis of bilateral knees had left TKR on 06/15/18. He was then transferred to TCU for further PT/OT. At present doing well, participating with PT 1. S/P Left TKR participating well with PT and improving . For discharge home in AM continue pain management Oxycodone 10mg PO Q6 PRN on vancomycin IV prophylactically until discharge 2. HTN BP stable Lopressor 25mg PO daily and Losartan 25mg PO daily 3. HLD on Ezetimibe 10mg daily 4. Migraine Imitrex 25mg PO BID 5. History of Heroin Abuse on Methadone 50mg PO daily 6. Anemia on Ferrous sulfate PO 7. DVT prophylaxis Lovenox 40mg SC daily
[2018-06-29] MEDS: oxyCODONE 5 mg Immediate Release Tab PO PRN (01:37)
[2018-06-29 08:12] VITALS: O2SAT 99
[2018-06-29] MEDS: Metoprolol Succinate 25 mg XL Tab PO SCH (09:10)
[2018-06-29] MEDS: Enoxaparin 40 mg Syringe SC SCH (09:12)
--- NOTE | 2018-06-29 11:37 | CP.PCM.DIS ---
Provider - Provider Date of Admission: 06/18/18 17:02 Attending physician: Naty Aragon DO Primary care physician: [facility] PROVID[facility] Consults: Dr Lewis Time Spent in preparation of Discharge (in minutes): 25 Diagnosis - Discharge Diagnosis (1) Status post total left knee replacement Status: Acute Comment: continue PT/OT as outpatient (2) HTN (hypertension) Status: Chronic Comment: BP stable. continue Lopressor and Losartan (3) HLD (hyperlipidemia) Status: Chronic Comment: continue Ezetimibe (4) Migraine Status: Chronic Comment: on Imitrex 25mg PO BID (5) Heroin abuse Status: Chronic Comment: on Methadone 50mg PO daily Hospital Course - Lab Results Lab Results: Most Recent Lab Values WBC 7.7 K/uL (4.8-10.8) 06/27/18 17:06 RBC 3.08 Mil/uL (4.40-5.90) L 06/27/18 17:06 Hgb 9.3 g/dL (12.0-18.0) L 06/27/18 17:06 Hct 26.7 % (35.0-51.0) L 06/27/18 17:06 MCV 86.8 fl (80.0-94.0) 06/27/18 17:06 MCH 30.3 pg (27.0-31.0) 06/27/18 17:06 MCHC 34.9 g/dL (33.0-37.0) 06/27/18 17:06 RDW 13.4 % (11.5-14.5) 06/27/18 17:06 Plt Count 262 K/uL (130-400) 06/27/18 17:06 PT 12.5 Seconds (9.8-13.1) 06/19/18 06:20 INR 1.1 06/19/18 06:20 APTT 30.4 Seconds (25.6-37.1) 06/19/18 06:20 Sodium 138 mmol/l (132-148) 06/27/18 17:06 Potassium 4.6 MMOL/L (3.6-5.0) 06/27/18 17:06 Chloride 103 mmol/L (98-107) 06/27/18 17:06 Carbon Dioxide 29 mmol/L (22-30) 06/27/18 17:06 Anion Gap 11 (10-20) 06/27/18 17:06 BUN 7 mg/dl (9-20) L 06/27/18 17:06 Creatinine 0.8 mg/dl (0.8-1.5) 06/27/18 17:06 Est GFR ( Amer) > 60 06/27/18 17:06 Est GFR (Non-Af Amer) > 60 06/27/18 17:06 Random Glucose 123 mg/dL (75-110) H 06/27/18 17:06 Calcium 9.1 mg/dL (8.4-10.2) 06/27/18 17:06 Total Bilirubin 1.0 mg/dl (0.2-1.3) 06/27/18 17:06 AST 49 U/L (17-59) 06/27/18 17:06 ALT 42 U/L (21-72) 06/27/18 17:06 Alkaline Phosphatase 109 U/L (38-126) 06/27/18 17:06 Total Protein 7.5 G/DL (6.3-8.2) 06/27/18 17:06 Albumin 3.5 g/dL (3.5-5.0) 06/27/18 17:06 Globulin 4.0 gm/dL (2.2-3.9) H 06/27/18 17:06 Albumin/Globulin Ratio 0.9 (1.0-2.1) L 06/27/18 17:06 - Hospital Course Hospital Course: 67 yo male with history of Hep C, HTN, HLD, Heroin abuse (on methadone for 37 years) and degenerative arthritis of bilateral knees had left TKR on 06/15/18. He was transferred to TCU for further PT/OT and did well. Patient now ready for discharge. Discharge Exam - Head Exam Head Exam: ATRAUMATIC, NORMAL INSPECTION, NORMOCEPHALIC - Eye Exam Eye Exam: absent: Scleral icterus - ENT Exam ENT Exam: Mucous Membranes Moist - Respiratory Exam Respiratory Exam: absent: Rales, Rhonchi, Wheezes, Respiratory Distress - Cardiovascular Exam Cardiovascular Exam: REGULAR RHYTHM, +S1, +S2 - GI/Abdominal Exam GI & Abdominal Exam: Soft. absent: Tenderness - Rectal Exam Rectal Exam: Deferred - Neurological Exam Neurological exam: Alert, Oriented x3 - Psychiatric Exam Psychiatric exam: Normal Affect - Skin Skin Exam: Dry, Intact Discharge Plan - Discharge Medications Prescriptions: Oxycodone HCl 5 mg PO Q4 #20 tablet - Follow Up Plan Condition: GOOD Disposition: HOME/ ROUTINE Instructions: Total Knee Replacement (DC) Additional Instructions: monitor surgical site for signs of infection. follow up with dr.el matute on wednesdayjul 05 at 10 am Referrals: FAMILY PROVIDER,NO [Primary Care Provider] -
--- NOTE | 2018-06-29 14:34 | CP.PCM.PN ---
Subjective - Date & Time of Evaluation Date of Evaluation: 06/29/18 Time of Evaluation: 11:00 - Subjective Subjective: Patient seen and examined at OOB comfortable. Pain well controlled. PT notes that he is able to perform stairs with moderate assistance. No new complaints. Denies CP/SOB/dizziness/fever. Objective - Vital Signs/Intake and Output Vital Signs (last 24 hours): Temp Pulse Resp BP Pulse Ox 97.9 F 64 20 123/67 99 06/29/18 08:11 06/29/18 09:11 06/29/18 08:11 06/29/18 09:11 06/29/18 08:11 - Medications Medications: Current Medications Aspirin (Ecotrin) 81 mg PO DAILY [facility] Last Admin: 06/29/18 09:11 Dose: 81 mg Docusate Sodium (Colace) 100 mg PO BID [facility] Last Admin: 06/29/18 09:12 Dose: 100 mg Ezetimibe (Zetia) 10 mg PO DAILY [facility] Last Admin: 06/29/18 09:11 Dose: 10 mg Enoxaparin Sodium (Lovenox) 40 mg SC DAILY [facility]; Protocol Last Admin: 06/29/18 09:12 Dose: 40 mg Ferrous Sulfate (Feosol) 325 mg PO BID [facility] Last Admin: 06/29/18 09:14 Dose: 325 mg Ibuprofen (Motrin Tab) 600 mg PO Q6 PRN PRN Reason: Pain, moderate (4-7) Last Admin: 06/23/18 17:54 Dose: 600 mg Ibuprofen (Motrin Tab) 600 mg PO Q6 PRN PRN Reason: Fever >100.4 F Last Admin: 06/22/18 21:23 Dose: 600 mg Ketorolac Tromethamine (Toradol) 15 mg IVP Q6 PRN PRN Reason: Pain, Mild (1-3) Losartan Potassium (Cozaar) 25 mg PO DAILY [facility] Last Admin: 06/29/18 09:11 Dose: 25 mg Methadone HCl (Methadone) 50 mg PO DAILY [facility] Last Admin: 06/29/18 09:09 Dose: 50 mg Metoprolol Succinate (Toprol Xl) 25 mg PO DAILY [facility] Last Admin: 06/29/18 09:10 Dose: 25 mg Nystatin (Nystop Topical Powder) 1 applic TOP TID [facility] Last Admin: 06/29/18 09:13 Dose: 1 applic Oxycodone HCl (Oxycodone Immediate Release Tab) 10 mg PO Q6 PRN PRN Reason: Pain, severe (8-10) Last Admin: 06/29/18 01:37 Dose: 10 mg Tizanidine HCl (Zanaflex) 4 mg PO HS [place] Last Admin: 06/28/18 21:16 Dose: 4 mg Zolpidem Tartrate (Ambien) 5 mg PO HS PRN PRN Reason: Insomnia Last Admin: 06/28/18 22:47 Dose: 5 mg - Labs Labs: 06/27/18 17:06 06/27/18 17:06 PT 12.5 Seconds (9.8-13.1) 06/19/18 06:20 INR 1.1 06/19/18 06:20 APTT 30.4 Seconds (25.6-37.1) 06/19/18 06:20 - Extremities Exam Additional comments: L knee: Dressing intact with no drainage Dressings removed revealing wound intact with malgorzata, Multiple healing large blisters healing well laterally and medially mild edema ROM 0-90deg sensation intact SP/DP/TN motor intact EHL/FHL/TA/G pedal pulses intact comps soft NT b/l Assessment and Plan (1) Status post total left knee replacement Assessment & Plan: POD #14 s/p L TKA doing well -dressings changed this AM, blisters well healed, continue dry dressing changes with telfa, gauze and chi wrap after every shower -may shower -PT/OT WBAT with rolling walker -DVT ppx with lovenox x 2 weeks -Must be set up with outpatient PT 4x per week prior to discharge -to follow up in office next Wednesday, call for appt -above d/w Dr. Starkey in agreement Assessment and Plan (1) Status post total left knee replacement Status: Acute
[2018-06-29 16:42] VITALS: BP 123/67; PULSE 64; TEMP 97.9
== END 2018-06-29 13:30 | disposition home or self-care (01) | DRG 560 ==
LOC: H.TCU 17:02
PROVIDERS: ADMIT Student in an Organized Health Care Education/Training Program; ATTEND Student in an Organized Health Care Education/Training Program
PROC: F07Z9FZ Gait Training/Functional Ambulation Treatment using Assistive, Adaptive, Supportive or Protective Equipment (ICD-10-PCS; principal; 2018-06-18)
PROC: F08Z4FZ Home Management Treatment using Assistive, Adaptive, Supportive or Protective Equipment (ICD-10-PCS; 2018-06-18)
PROC: F07L6FZ Therapeutic Exercise Treatment of Musculoskeletal System - Lower Back / Lower Extremity using Assistive, Adaptive, Supportive or Protective Equipment (ICD-10-PCS; 2018-06-18)
DX: Z47.1 Aftercare following joint replacement surgery (principal); F11.20 Opioid dependence, uncomplicated; Z96.652 Presence of left artificial knee joint; M17.0 Bilateral primary osteoarthritis of knee; I10 Essential (primary) hypertension; B19.20 Unspecified viral hepatitis C without hepatic coma; G43.909 Migraine, unspecified, not intractable, without status migrainosus; E78.5 Hyperlipidemia, unspecified; D64.9 Anemia, unspecified; F17.210 Nicotine dependence, cigarettes, uncomplicated; Z88.6 Allergy status to analgesic agent; Z88.0 Allergy status to penicillin; Z87.01 Personal history of pneumonia (recurrent)